=== PATIENT | male | born 1960 | race Caucasian/White ===

== ENCOUNTER 2019-02-14 12:28 | Day surgery (SDC) | payer BC ==
[2019-02-13 09:28] VITALS: BMI 28.6
[~2019-02-14 12:28] MED LIST: LACTATED RINGERS 1,000 ML IV SCH; LIDOCAINE 1% 20 ML VIAL (10MG/ML) FOR IV START INTRADERMA PRN
[2019-02-14 13:36] VITALS: RESP 16; TEMP 97.7
[2019-02-14] MEDS ORDERED: INDOMETHACIN 50MG SUPPOSITORY RECTAL ONE (14:28)
[2019-02-14] MEDS ORDERED: LEVOFLOXACIN 500MG-D5W PMX 500 MG in DEXTROSE/WATER 1 100ML.BAG IVPB STA (14:28)
[2019-02-14] MEDS ORDERED: PROPOFOL 10 MG/ML 20 ML VIAL IV ONE (14:48)
[2019-02-14] MEDS ORDERED: KETAMINE 10 MG/ML 20 ML VIAL ONE (14:48)
[2019-02-14] MEDS ORDERED: LIDOCAINE 1% INJ 10MG/ML (20 ML MDV) ONE (14:48)
[2019-02-14] MEDS ORDERED: MIDAZOLAM 2 MG/2 ML VIAL ONE (14:48)
[2019-02-14] MEDS ORDERED: fentaNYL (PF) 50 MCG/ML 2 ML AMP ONE (14:48)
[2019-02-14 14:54] LABS: ALT 77 U/L (21-72); AST 229 U/L (17-59); African American GFR (CKD) >90 (>60 ml/min/1.73 sqM); Albumin 2.6 g/dL (3.5-5.0); Alkaline Phosphatase 295 U/L (38-126); Anion Gap 7 mmol/L; Blood Urea Nitrogen 10 mg/dL (9-20); Calcium 8.4 mg/dL (8.4-10.2); Carbon Dioxide 25 mmol/L (22-30); Chloride 110 mmol/L (98-107); Glucose 108 mg/dL (74-99); Potassium 3.3 mmol/L (3.5-5.1); Sodium 142 mmol/L (137-145)
[2019-02-14 15:06] LABS: Total Bilirubin 18.8 mg/dL (0.2-1.3); Total Protein 7.1 g/dL (6.3-8.2)
--- NOTE | 2019-02-14 15:16 | P.PCN ---
Date of Procedure: 02/14/19 Procedure(s) Performed: Brief history: Patient is a 58 year-old pleasant white male scheduled for an ERCP as part of evaluation of progressive jaundice for the last 2 weeks' duration. He was admitted to [facility] 2 weeks ago with acute onset of epigastric pain and subsequently diagnosed with acute pancreatitis. He was also noted to have elevated LFTs with bilirubin up to 7.5 g/dL and mild elevation of serum transaminases. Ultrasound of the gallbladder did not show any evidence of gallstones. Subsequently he had an MRCP done that showed no evidence of biliary ductal dilation. Patient was being observed closely. Bilirubin continue to worsen and 2 days ago it was 19.5 g/dL. Patient continued to be remain symptomatic. Because of clinical suspicion for extrahepatic biliary obstruction he scheduled for an ERCP to rule out biliary stricture. Procedure performed: ERCP Preoperative diagnoses: Progressive jaundice 2 weeks duration and mild elevation of serum transaminases IV sedation per anesthesia: Procedure: After informed consent was obtained from the patient and after the risks benefits and complications including bleeding perforation and pancreatitis explained in detail the patient was brought into the endoscopy unit. The patient was placed in prone position and IV conscious sedation was administered by anesthesia under continuous monitoring. The Olympus side-viewing duodenoscope was then inserted into the mouth and esophagus intubated without any difficulty. The scope was gradually advanced into the stomach and duodenum. The major papilla was identified without any difficulty. Cannulation resulted in opacification of the pancreatic duct that appeared normal. Subsequent cannulation resulted in opacification of the common bile duct that measured about 3-4 mm in diameter with a patent cystic duct no evidence of biliary stricture or intrahepatic bili dilation seen. No filling defect identified. At this time the procedure was terminated. Patient tolerated the procedure well.. Impression: 1. Normal pancreatic duct 2. Normal-appearing common bile duct measuring 3 mm in diameter with no evidence of stricture, filling defects or biliary ductal dilation. Patent cystic duct. Recommendations: The findings of this examination were discussed with the patient as well as a family. This time we're dealing with severe intrahepatic cholestasis probably related to chronic alcoholic liver disease causing worsening jaundice. We will follow labs on a weekly basis and the patient will be seen in office next week. I will consider proceeding with a liver biopsy if bilirubin does not improve in the next 2-3 weeks
[2019-02-14 15:19] LABS: INR 1.5 (<1.2); Partial Thromboplastin Time 29.9 sec (22.0-30.0); Prothrombin Time 14.9 sec (9.0-12.0)
[2019-02-14 15:20] LABS: Anisocytosis Moderate; HCT 43.1 % (39.0-53.0); HGB 13.3 gm/dL (13.0-17.5); MCH 30.5 pg (25.0-35.0); MCV 98.5 fL (80.0-100.0); Macrocytosis Moderate; Mean Platelet Volume 7.8; Platelet Count 121 k/uL (150-450); RBC 4.37 m/uL (4.30-5.90); RDW 20.1 % (11.5-15.5); WBC 5.2 k/uL (3.8-10.6)
[2019-02-14] MEDS ORDERED: IV FLUID CONTINUATION 400 ML IV ONE (15:23)
[2019-02-14 15:50] LABS: Eosinophils # (M) 0.16 k/uL (0-0.7); Lymphocytes # (M) 1.77 k/uL (1.0-4.8); Monocytes # (M) 0.31 k/uL (0-1.0); Neutrophils % (M) 57 %; Nucleated Red Blood Cells 0 /100 WBC (0-0); Total Cells Counted 100
[2019-02-14 15:51] VITALS: BP 118/73; PULSE 81
[2019-02-14 15:51] LABS: Target Cells Present
--- NOTE | 2019-02-14 16:16 | FL ---
EXAMINATION TYPE: FL ERCP DATE OF EXAM: 02/14/2019 FLUOROSCOPY Fluoroscopy time of 1 minute 54 seconds was used during ERCP. 3 image/s document/s the procedure.
== END 2019-02-14 16:05 | disposition home or self-care (01) ==
LOC: ORWHC2ENDO 12:28
PROVIDERS: ATTEND Internal Medicine Gastroenterology
DX: R17 Unspecified jaundice (principal); R74.0 Nonspecific elevation of levels of transaminase and lactic acid dehydrogenase [LDH]; K85.90 Acute pancreatitis without necrosis or infection, unspecified; R94.5 Abnormal results of liver function studies; F41.9 Anxiety disorder, unspecified; Z88.5 Allergy status to narcotic agent; Z91.040 Latex allergy status; Z91.018 Allergy to other foods; Z85.038 Personal history of other malignant neoplasm of large intestine; Z98.890 Other specified postprocedural states; Z79.899 Other long term (current) drug therapy
CPT/HCPCS: 80053; 85025; 85610; 85730; 74330; 43260; J2250; J2001; J3010; J2704

== ENCOUNTER → 2019-08-14 | Outpatient (CLI) | payer OTHER ==
--- NOTE | 2019-08-14 14:36 | MR ---
EXAMINATION TYPE: MR knee LT wo con DATE OF EXAM: 08/14/2019 COMPARISON: NONE HISTORY: Lt Knee pain TECHNIQUE: Multiplanar, multisequence images of the knee is performed without IV contrast. FINDINGS: MEDIAL MENISCUS: Medial extrusion medial meniscus on coronal images. Anterior horn has oblique irregu lar signal extending to inferior articular surface sagittal image 25. Posterior horn has trifurcation with abnormal increased signal including vertical component deep aspect sagittal image 24 and obliqu e component extending to inferior articular surface same image. LATERAL MENISCUS: Anterior and posterior horns are intact without tear. CRUCIATE LIGAMENTS: The anterior and posterior cruciate ligaments are intact and unremarkable. COLLATERAL LIGAMENTS: The medial collateral ligament and lateral collateral ligament complex are inta ct . Moderate fluid signal surrounds medial collateral ligament reference coronal image 20. EXTENSOR MECHANISM: Visualized quadriceps and patellar tendons are intact. EFFUSION: No significant suprapatellar joint effusion. POPLITEAL CYST: No popliteal/robert cyst. TRICOMPARTMENT SPACES: [id number] tricompartmental joint space loss with mild spurring. CARTILAGE: Tricompartment articular cartilage fairly well-maintained. BONE MARROW SIGNAL: No focal abnormal marrow signal is appreciated. OTHER: No additional significant abnormality is appreciated. IMPRESSION: 1. Full-thickness somewhat complex tear posterior horn medial meniscus. 2. Full-thickness oblique tear anterior horn medial meniscus. 3. Mild MCL sprain injury. 4. Mild to borderline moderate tricompartment degenerative changes as detailed above.
== END | disposition home or self-care (01) ==
LOC: RADMRIMAIN 13:42
PROVIDERS: ATTEND Pediatrics
DX: S83.232A Complex tear of medial meniscus, current injury, left knee, initial encounter (principal); S83.242A Other tear of medial meniscus, current injury, left knee, initial encounter; S83.412A Sprain of medial collateral ligament of left knee, initial encounter; M17.12 Unilateral primary osteoarthritis, left knee

== ENCOUNTER → 2020-06-28 | Outpatient (CLI) | payer BC ==
[2020-06-28 09:17] LABS: Basophils % (A) 1 %; Eosinophils # (A) 0.1 k/uL (0-0.7); Eosinophils % (A) 4 %; HCT 40.9 % (39.0-53.0); HGB 13.1 gm/dL (13.0-17.5); Lymphocytes # (A) 0.8 k/uL (1.0-4.8); Lymphocytes % (A) 24 %; MCV 96.8 fL (80.0-100.0); Mean Platelet Volume 7.6; Monocytes # (A) 0.2 k/uL (0-1.0); Monocytes % (A) 6 %; Neutrophils # (A) 2.3 k/uL (1.3-7.7); Neutrophils % (A) 65 %; RBC 4.22 m/uL (4.30-5.90); RDW 15.9 % (11.5-15.5); WBC 3.6 k/uL (3.8-10.6)
[2020-06-28 09:57] LABS: Poikilocytosis (M) Present
[2020-06-28 09:58] LABS: Platelet Count 99 k/uL (150-450)
[2020-06-28 16:01] LABS: % Iron Saturation 51.91 (15.00-50.00); African American GFR (CKD) 120.6 (60.0-200.0); Albumin 2.9 g/dL (3.80-4.90); BUN/Creat Ratio 17.14 Ratio (12.00-20.00); Globulin 2.9 g/dL (1.6-3.3); Magnesium 1.5 mg/dL (1.5-2.4); Total Bilirubin 2.8 mg/dL (0.3-1.2); Total Protein 5.8 g/dL (6.2-8.2)
[2020-06-28 16:55] LABS: Folate, Serum 20.3 ng/mL
== END | disposition home or self-care (01) ==
LOC: LABWHC1 08:02
PROVIDERS: ATTEND Internal Medicine Gastroenterology
DX: K74.69 Other cirrhosis of liver (principal); E07.9 Disorder of thyroid, unspecified
CPT/HCPCS: 36415; 80053; 82607; 82746; 83540; 83550; 83735; 84439; 84443; 85025

== ENCOUNTER → 2020-06-28 | Outpatient (CLI) | payer BC ==
--- NOTE | 2020-06-28 09:16 | US ---
EXAMINATION TYPE: US liver DATE OF EXAM: 06/28/2020 COMPARISON: NONE CLINICAL HISTORY: 59-year-old male K70.30 Alcoholic cirrhosis of liver without ascites. Patient state s he used to drink alcohol. TECHNIQUE: Multiple sonographic images of the right upper quadrant are obtained. FINDINGS: EXAM MEASUREMENTS: Liver Length: 12.5 cm Gallbladder Wall: 0.4 cm Right Kidney: 10.9 x 4.9 x 5.4 cm Pancreas: Echogenic in appearance. Most of the pancreatic tail is obscured by overlying bowel gas. Liver: Appears small in size. Nodular. Heterogenous. Coarse. No focal lesion identified. Gallbladder: Mildly thickened gallbladder wall. No abnormal distention, pericholecystic fluid, or sh adowing calculi. Evidence for sonographic Coleman's sign: neg CBD: Obscured by overlying bowel gas Right Kidney: No hydronephrosis. No ascites fluid within the right upper quadrant. IMPRESSION: 1. Shrunken and nodular appearance to the liver compatible with underlying cirrhosis. No focal lesion seen. 2. Mild gallbladder wall thickening probably reactive to the cirrhosis. No gallstones or ancillary fi ndings of acute cholecystitis. 3. No biliary ductal dilatation. No ascites fluid in the right upper quadrant.
== END | disposition home or self-care (01) ==
LOC: RADUSWWP 08:19
PROVIDERS: ATTEND Internal Medicine Gastroenterology
DX: K76.89 Other specified diseases of liver (principal); K70.30 Alcoholic cirrhosis of liver without ascites; R93.2 Abnormal findings on diagnostic imaging of liver and biliary tract
CPT/HCPCS: 76705

== ENCOUNTER → 2020-12-28 | Outpatient (CLI) | payer OTHER ==
--- NOTE | 2020-12-29 02:52 | MR ---
EXAMINATION TYPE: MR cervical spine wo con DATE OF EXAM: 12/28/2020 COMPARISON: None HISTORY: Cervicalgia, tingling in fingers, neck pain, headache Multiplanar multiecho imaging of the cervical spine without contrast. Vertebra have normal alignment. There is metal artifact from anterior fusion surgery at C5-6. The pos terior elements are intact. There is some narrowing of the cervical spinal canal at C6-7. Canal measu res 6.4 mm. Cervical spinal cord shows no edema. Brainstem is intact. There is no evidence of paraspi nal mass. There is posterior endplate spur formation at C6-7 encroaching on the spinal canal. IMPRESSION: Previous fusion surgery. There is a mild spinal stenosis at C6-7 due to posterior endplate spurring.
== END | disposition home or self-care (01) ==
LOC: RADMRIMAIN 07:33
PROVIDERS: ATTEND Physician Assistant
DX: M48.02 Spinal stenosis, cervical region (principal); Z98.1 Arthrodesis status
CPT/HCPCS: 72141